=== PATIENT | male | born 1935 | race Caucasian/White ===

== ENCOUNTER 2017-08-05 08:04 | Inpatient (IN) | payer MEDICARE ==
[~2017-08-05] VITALS: Ht 175.3 cm; Wt 85.3 kg
[~2017-08-05 08:04] MED LIST: ADULT LOW DOSE81 MG PO; ALDACTONE25 MG PO; ASPIRIN EC81 M1; BACTROBAN15 GM TP; CEFUROXIME500 MG PO; CLONAZEPAM 1 MG1 M1 PO; DOXYCYCLINE 10100 M1 PO; FUROSEMIDE 20 M20 MG PO; GAS RELIEF80 MG PO; LIPITOR20 MG PO; LIQUITEARS15 ML OPHTHALMIC; NEURONTIN100 MG PO; NORCO 5-325 TA1 EAC1 PO; NORCO 5-325 TA1 EACH PO; TYLENOL325 MG PO; ULTRAM 50MG TAB50 MG PO
[2017-08-05 08:05] VITALS: BP 127/40
[2017-08-05 08:37] LABS: CALCIUM 8.4 mg/dL (8.5-10.1); CREATININE 1.1 mg/dL (0.6-1.3); POTASSIUM 4.6 mmol/L (3.5-5.1)
[2017-08-05 08:38] LABS: APTT 25.4 Seconds (25.0-31.3); PROTIME 9.9 Seconds (9.20-11.50)
[2017-08-05 08:51] LABS: TOTAL BILIRUBIN 0.4 mg/dL (<0.1-1.0); TOTAL PROTEIN 7.2 g/dL (6.4-8.2); TROPONIN-I LEVEL 0.07 ng/mL (<0.06)
[2017-08-05 08:56] LABS: URINE BILIRUBIN NEGATIVE (Negative); URINE BLOOD NEGATIVE (Negative); URINE CLARITY CLEAR; URINE COLOR YELLOW; URINE GLUCOSE-RANDOM NEGATIVE (Negative); URINE KETONES TRACE (Negative); URINE LEUKOCYTES-REFLEX NEGATIVE (Negative); URINE NITRITE-REFLEX NEGATIVE (Negative); URINE PROTEIN NEGATIVE (Negative); URINE SPECIFIC GRAVITY 1.025 (1.005-1.030); URINE UROBILINOGEN 0.2 E.U./dl (0.2-1.0)
[2017-08-05 09:13] LABS: HEMATOCRIT 34.1 % (42.0-52.0); HEMOGLOBIN 11.3 gm/dL (14.0-18.0); MCH 30.7 pg (26.0-34.0); MCHC 33.2 g/dL (28.0-37.0); MCV 92.3 fL (80.0-100.0); MPV 8.1 fl. (7.2-11.1); NUCLEATED RBCS 0 /100WBC; PLATELET COUNT* 211 thou/uL (150-400); RDW-CV 16.3 % (10.5-14.5); WBC 9.9 thou/uL (4.0-11.0)
[2017-08-05 09:41] LABS: ABSOLUTE MONOCYTES 0.6 thou/uL (0.0-1.2); ABSOLUTE NEUTROPHILS 8.3 thou/uL (1.6-8.1)
[2017-08-05 09:42] LABS: PLATELET ESTIMATE ADEQUATE
[2017-08-05 10:54] VITALS: BP 113/43
[2017-08-05 11:32] VITALS: BP 125/48
--- NOTE | 2017-08-05 13:47 | EKG ---
[place] [address] ELECTROCARDIOGRAM REPORT Name: ROMMEL FOX Room: [address] ADM IN [facility].#: [id number] Admission: 08/05/17 Attend Phys: Alejo Ireland Discharge: Date of : 37 Report #: [id number] THIS REPORT FOR: //name// [facility] ED Test Date: 2017-08-05 Test Time: 08:07:28 Pat Name: ROMMEL FOX Department: Room: [facility] Gender: Special Tax Auditor: Reta KING : 1935 Requested By: Joshua Mata Order Number: [id number] MD: Vik Plummer Measurements Intervals [place] Rate: 87 P: 41 IN: 174 QRS: -79 QRSD: 140 T: 10 QT: 410 QTc: 494 Interpretive Statements Sinus rhythm Multiple premature complexes, vent & supraven RBBB and LAFB Compared to ECG 06/16/2017 10:29:26 No significant changes Electronically Signed On 08-05-2017 13:46:55 WEBSITE/BLOG EDITOR by Vik Plummer [email or web address] <ELECTRONICALLY SIGNED> By: Vik Plummer MD, [facility] 08/05/17 1346 [id number] Vik Plummer MD, [facility] /EPI
[2017-08-05 16:43] VITALS: BP 140/54
[2017-08-05 20:00] VITALS: BP 132/54
[2017-08-06] VITALS: BP 125/66
[2017-08-06 04:00] VITALS: BP 136/41
[2017-08-06 05:00] LABS: HEMATOCRIT 33.9 % (42.0-52.0); HEMOGLOBIN 11.3 gm/dL (14.0-18.0); MCH 30.6 pg (26.0-34.0); MCHC 33.4 g/dL (28.0-37.0); MCV 91.6 fL (80.0-100.0); MPV 8.5 fl. (7.2-11.1); RBC 3.7 mil/uL (4.50-6.00); RDW-CV 15.9 % (10.5-14.5); WBC 7.1 thou/uL (4.0-11.0)
[2017-08-06 05:19] LABS: URINE BILIRUBIN NEGATIVE (Negative); URINE BLOOD NEGATIVE (Negative); URINE CLARITY CLEAR; URINE COLOR YELLOW; URINE GLUCOSE-RANDOM NEGATIVE (Negative); URINE KETONES NEGATIVE (Negative); URINE LEUKOCYTES-REFLEX NEGATIVE (Negative); URINE NITRITE-REFLEX NEGATIVE (Negative); URINE PROTEIN NEGATIVE (Negative); URINE UROBILINOGEN 0.2 E.U./dl (0.2-1.0)
[2017-08-06 05:27] LABS: CALCIUM 8.1 mg/dL (8.5-10.1); POTASSIUM 4.2 mmol/L (3.5-5.1)
[2017-08-06 08:00] VITALS: BP 121/51
[2017-08-06 11:52] VITALS: BP 120/50
--- NOTE | 2017-08-06 15:26 | EKG ---
[place] [address] ELECTROCARDIOGRAM REPORT Name: ROMMEL FOX Room: [address] ADM IN M.R.#: [id number] Admission: 08/05/17 Attend Phys: Alejo Ireland Discharge: Date of : 37 Report #: [id number] THIS REPORT FOR: //name// [facility] Test Date: 2017-08-05 Test Time: 14:24:40 Pat Name: ROMMEL FOX Department: Room: [address] Gender: M Regional Production Manager: : 1935 Requested By: Joshua Mata Order Number: [id number] Reading MD: Remi Renee Measurements Intervals [place] Rate: 93 P: 35 MO: 178 QRS: -84 QRSD: 145 T: 13 QT: 393 QTc: 489 Interpretive Statements Sinus rhythm Probable left atrial enlargement RBBB and LAFB Compared to ECG 08/05/2017 08:07:28 No significant changes Electronically Signed On 08-06-2017 15:26:48 [employer] NURSE STAFF by Remi Renee [email or web address] <ELECTRONICALLY SIGNED> By: Remi Renee MD, [facility] 08/06/17 1526 1424 1424 Remi Renee MD, [facility] /EPI
[2017-08-06 16:27] VITALS: BP 130/44
[2017-08-06 21:00] VITALS: BP 134/53
[2017-08-07] VITALS: BP 140/57
[2017-08-07 04:00] VITALS: BP 123/47
[2017-08-07 08:17] VITALS: BP 130/48
[2017-08-07 11:30] VITALS: BP 120/42
[2017-08-07 16:00] VITALS: BP 144/61
[2017-08-07 20:10] VITALS: BP 136/55
[2017-08-08] VITALS: BP 138/51
[2017-08-08 08:03] VITALS: BP 111/39
[2017-08-08 10:40] VITALS: BP 111/39
[2017-08-08 11:30] LABS: INFLUENZA A ANTIGEN None Detected (None Detect); INFLUENZA B ANTIGEN None Detected (None Detect)
[2017-08-08 11:40] LABS: HEMATOCRIT 37.1 % (42.0-52.0); HEMOGLOBIN 12.3 gm/dL (14.0-18.0); MCH 30.6 pg (26.0-34.0); MCHC 33.2 g/dL (28.0-37.0); MCV 92.1 fL (80.0-100.0); MPV 8.3 fl. (7.2-11.1); NUCLEATED RBCS 0 /100WBC; PLATELET COUNT* 229 thou/uL (150-400); RBC 4.03 mil/uL (4.50-6.00); RDW-CV 16.1 % (10.5-14.5); WBC 9.6 thou/uL (4.0-11.0)
[2017-08-08 11:52] LABS: ALBUMIN 2.6 g/dL (3.4-5.0); CALCIUM 8.3 mg/dL (8.5-10.1); CREATININE 1.1 mg/dL (0.6-1.3); POTASSIUM 4.2 mmol/L (3.5-5.1); TOTAL BILIRUBIN 0.5 mg/dL (<0.1-1.0)
[2017-08-08 12:12] LABS: ABSOLUTE LYMPHOCYTES 0.7 thou/uL (0.8-5.3); ABSOLUTE MONOCYTES 1.1 thou/uL (0.0-1.2); ABSOLUTE NEUTROPHILS 7.9 thou/uL (1.6-8.1); PLATELET ESTIMATE ADEQUATE
[2017-08-08 12:13] LABS: ANISOCYTOSIS 1+; POIKILOCYTOSIS 1+
[2017-08-08] MEDS ORDERED: FLOMAX0.4 MG PO (12:23)
[2017-08-08] MEDS ORDERED: AUGMENTIN 875-1 EACH PO (12:24)
--- NOTE | 2017-08-22 20:10 | CON ---
[facility] [address] [place] [address] CONSULTATION Name: ROMMEL FOX Room: [address] IN M.R.#: [id number] Admission: 08/05/17 Attend Phys: Alejo Ireland Discharge: 08/08/17 Date of : 37 Report #: [id number] THIS REPORT FOR: //name// CC: Antonino De La Cruz DATE OF SERVICE: 08/05/2017 HISTORY OF PRESENT ILLNESS: This is an 81-year-old male patient who was evaluated by me because of recurrent falls. This patient is not able to provide any reliable history at all. The son is there and he provided some history. Son does not live with him and he lives with his . 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 It is not clear what symptoms he was having that time. About 10 years ago, he had some cardiac surgery and when he from there, he was having some ambulation difficulty. He continues to have ambulation difficulty and in fact has fallen down. He appeared to have multiple bruises. They think on the face there are bruises, but do not know and the son is going to confirm from the that there are bruises. It is not clear what his mentation is because his hearing is so poor. REVIEW OF SYSTEMS: Positive for the diagnosis of normal pressure hydrocephalus, but it does not look like he had a classical triad when the shunt was put in. 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 It is not clear what valve it is. He had multiple falls. This was his relevant 14-point review of systems. PAST MEDICAL HISTORY: Positive for the diagnosis of normal pressure hydrocephalus. FAMILY HISTORY: Negative for early age stroke. SOCIAL HISTORY: Does not smoke or drink any alcohol. PHYSICAL EXAMINATION: It is difficult or impossible to do higher function examinations on him. He can talk. I am not sure if he is oriented or not. I cannot tell about memory or fund of knowledge. Cranial nerve examination 2-12 was attempted, was very difficult to do. He moves all four extremities. His position sense appeared to be intact. He does have a replaced valve. He does not have any other respiratory problems. His blood pressure is 125/48, respirations 16, pulse is 85. His pulses are difficult to feel. He has no edema, cyanosis or jaundice. He is a very well developed individual who does not have any dysmorphic features of eyes, ears and face, but is virtually deaf. LABORATORY DATA: His hemoglobin is 11.3. His [place] [address] CONSULTATION Name: ROMMEL FOX Room: [address] IN [facility]#: [id number] Admission: 08/05/17 Attend Phys: Alejo Ireland Discharge: 08/08/17 Date of : 37 Report #: [id number] moderate amount of ventriculomegaly. IMPRESSION: I had a long talk with this patient. He had a diagnosis of normal pressure hydrocephalus, but I do not know how established the diagnosis was. Furthermore treating normal pressure hydrocephalus with a shunt is always unpredictable. He may have had further hypoxia when he had cardiac surgery. That is why his gait problems became worse. They have been told that the patient should not have an MRI. That makes it very difficult to evaluate this patient. I cannot exclude the spine lesion and is not possible to exclude the brain lesions either fully. I discussed their options with them. They are interested in very conservative treatment. They would like the patient to be on physical therapy. RECOMMENDATIONS: 1. Continue with physical therapy. 2. See how he does. 3. I do not think we can do much on him at the moment and he can see a neurosurgeon as an outpatient. All of it was discussed with the family and I discussed with them options in great detail. The patient was also discussed with Dr. Aslton. More than 50 minutes of time was spent taking care of this patient today and majority of that time was spent counseling this patient's family as well as coordinating his care. Thank you very much for this referral. <ELECTRONICALLY SIGNED> By: Miguelito Casas MD 08/22/172009 1534 1737Miguelito Casas MD /nt
== END 2017-08-08 16:24 | DRG 56 ==
LOC: M.ERS 08:04 → M.2W 09:36 → M.TBA-ER 09:36 → M.2W 11:08
PROVIDERS: Family Medicine; Internal Medicine; ADMIT Internal Medicine
DX: G91.2 (Idiopathic) normal pressure hydrocephalus (principal); J15.6 Pneumonia due to other Gram-negative bacteria; G93.40 Encephalopathy, unspecified; E44.1 Mild protein-calorie malnutrition; H91.90 Unspecified hearing loss, unspecified ear; F02.80 Dementia in other diseases classified elsewhere, unspecified severity, without behavioral disturbance, psychotic disturbance, mood disturbance, and anxiety; G30.9 Alzheimer's disease, unspecified; E86.0 Dehydration; S61.412A Laceration without foreign body of left hand, initial encounter; W18.39XA Other fall on same level, initial encounter; I10 Essential (primary) hypertension; E78.5 Hyperlipidemia, unspecified; N40.1 Benign prostatic hyperplasia with lower urinary tract symptoms; K59.00 Constipation, unspecified; R33.8 Other retention of urine; Z95.2 Presence of prosthetic heart valve; Z68.27 Body mass index [BMI] 27.0-27.9, adult; Z90.49 Acquired absence of other specified parts of digestive tract; Z98.2 Presence of cerebrospinal fluid drainage device; Z90.79 Acquired absence of other genital organ(s); Z79.899 Other long term (current) drug therapy; Y93.89 Activity, other specified; Y92.89 Other specified places as the place of occurrence of the external cause; Y99.8 Other external cause status

== ENCOUNTER → 2017-08-21 | Outpatient (CLI) | payer MEDICARE ==
[~2017-08-21] MED LIST changes: +AUGMENTIN 875-1 EACH PO; +FLOMAX0.4 MG PO
== END ==
LOC: M.WC 08-19 01:32
DX: I87.311 Chronic venous hypertension (idiopathic) with ulcer of right lower extremity (principal); L97.811 Non-pressure chronic ulcer of other part of right lower leg limited to breakdown of skin; I25.10 Atherosclerotic heart disease of native coronary artery without angina pectoris; I35.8 Other nonrheumatic aortic valve disorders; E78.2 Mixed hyperlipidemia; N40.1 Benign prostatic hyperplasia with lower urinary tract symptoms; G91.2 (Idiopathic) normal pressure hydrocephalus; F03.90 Unspecified dementia, unspecified severity, without behavioral disturbance, psychotic disturbance, mood disturbance, and anxiety; Z68.27 Body mass index [BMI] 27.0-27.9, adult; Z95.1 Presence of aortocoronary bypass graft